=== PATIENT | female | born 1965 | race Caucasian/White ===

== ENCOUNTER 2019-05-31 08:47 | Day surgery (SDC) | payer BC ==
[~2019-05-31] VITALS: Ht 158.8 cm; Wt 64.1 kg
[~2019-05-31 08:47] MED LIST: ESZO3TAB28 PO; LEVO50TA PO
[2019-05-31] MEDS ORDERED: FENTANYL PF 100 MCG/2ML ONE (08:52)
[2019-05-31] MEDS ORDERED: MIDAZOLAM 1 MG/ML, 2ML ONE ×2 (08:52→15:59)
[2019-05-31 09:38] VITALS: BP 115/65
[2019-05-31] MEDS ORDERED: LACTATED RINGERS 1,000 ML IV SCH (09:41)
[2019-05-31] MEDS ORDERED: CEFOTETAN PMX 2GM/50ML 50 ML IV ONE (10:00)
[2019-05-31] MEDS ORDERED: ACETAMINOPHEN 500 MG TABLET PO ONE (10:00)
[2019-05-31] MEDS ORDERED: CEFOTETAN PMX 2GM/50ML 50 ML ONE (10:13)
[2019-05-31 10:39] LABS: ALANINE AMINOTRANSFERASE 27 U/L (12-78); ALBUMIN 3.9 g/dL (3.4-5.0); ANION GAP 5 mmol/L (5-15); CALCIUM 8.9 mg/dL (8.5-10.1); CHLORIDE 115 mmol/L (98-107)
[2019-05-31 10:43] LABS: ALKALINE PHOSPHATASE 86 U/L (45-117); BILIRUBIN,TOTAL 0.3 mg/dL (0.2-1.0); TOTAL PROTEIN 8.3 g/dL (6.4-8.2)
[2019-05-31] MEDS ORDERED: BUPIVACAINE/PF-EPI 0.25% 1:200K ONE (15:11)
[2019-05-31] MEDS ORDERED: FENTANYL PF 250 MCG/5ML ONE (15:59)
[2019-05-31] MEDS ORDERED: KETOROLAC 30 MG/1 ML ONE (16:04)
[2019-05-31] MEDS ORDERED: PROPOFOL 10 MG/ML, 20ML ONE (16:05)
[2019-05-31] MEDS ORDERED: ONDANSETRON 2MG/ML, 2ML ONE (16:05)
[2019-05-31] MEDS ORDERED: DEXAMETHASONE 4 MG/ML, 1ML ONE (16:05)
[2019-05-31] MEDS ORDERED: CEFAZOLIN 1,000 MG ONE (16:05)
[2019-05-31] MEDS ORDERED: HALOPERIDOL 5 MG/ML IV PRN (16:30)
[2019-05-31] MEDS ORDERED: OXYcodone 5 MG/5 ML ORAL.SOL UDC PO PRN (16:30)
[2019-05-31] MEDS ORDERED: HYDROmorphone 2 MG/ML, 1ML IVPush PRN (16:30)
[2019-05-31] MEDS ORDERED: FENTANYL PF 100 MCG/2ML IV PRN (16:30)
[2019-05-31] MEDS ORDERED: PROMETHAZINE 25 MG/ML, 1ML IV PRN (16:30)
[2019-05-31] MEDS ORDERED: ACETAMINOPHEN 325 MG TABLET PO PRN (16:30)
[2019-05-31] MEDS ORDERED: MEPERIDINE/PF 25MG/ML,1ML IVPush PRN (16:30)
[2019-05-31] MEDS ORDERED: MORPHINE SULFATE 4 MG/ML, 1ML IVPush PRN (16:30)
[2019-05-31] MEDS ORDERED: LABETALOL 5MG/ML, 20ML IV PRN (16:30)
[2019-05-31] MEDS ORDERED: hydrALAzine 20 MG/ML, 1ML IV PRN (16:30)
[2019-05-31] MEDS ORDERED: BUPIVACAINE/PF-EPI 0.25% 1:200K INFIL ONE (17:04)
[2019-05-31] MEDS ORDERED: ACETAMINOPHEN 325 MG TABLET ONE (17:47)
[2019-05-31] MEDS ORDERED: ACETAMINOPHEN 650 MG/20.3 ML UDC ONE (17:48)
== END 2019-05-31 19:39 | disposition home or self-care (01) ==
LOC: OUT 08:47 → 4NE 18:40 → OUT 19:39
PROVIDERS: ATTEND Specialist
DX: N76.2 Acute vulvitis (principal); N94.10 Unspecified dyspareunia; E03.9 Hypothyroidism, unspecified; Z79.890 Hormone replacement therapy; Z79.899 Other long term (current) drug therapy; Z85.41 Personal history of malignant neoplasm of cervix uteri; Z92.21 Personal history of antineoplastic chemotherapy
CPT/HCPCS: 36415; 56620; 80053; 88305; 88341; 88342; J0690; J1100; J1885; J2250; J2405; J2704; J3010; J3490; J7120; G0378